=== PATIENT | male | born 1960 | race Caucasian/White ===

== ENCOUNTER 2017-01-23 18:01 | Emergency (ER) | payer SELFPAY ==
[~2017-01-23] VITALS: Ht 167.6 cm; Wt 64.0 kg
[2017-01-23 18:05] VITALS: BP_SYST 148
[2017-01-23 18:30] VITALS: BP_SYST 136
== END 2017-01-23 18:30 | disposition home or self-care (01) ==
LOC: SED 18:01
DX: Z02.89 Encounter for other administrative examinations (principal); I10 Essential (primary) hypertension; Z88.0 Allergy status to penicillin; Z88.1 Allergy status to other antibiotic agents
CPT/HCPCS: 99283